=== PATIENT | female | born 1955 | race Caucasian/White ===

== ENCOUNTER → 2021-11-27 14:15 | Outpatient (BNVA) | payer MEDICARE, OTHER, SELFPAY | PROVIDERS: PCP Nurse Practitioner Family; Visit Provider Psychiatry & Neurology Neurology | DX: G35 Multiple sclerosis (principal); G25.0 Essential tremor | CPT/HCPCS: 99212 ==

== ENCOUNTER → 2022-05-21 13:02 | Outpatient (BNVA) | payer MEDICARE, OTHER, SELFPAY | PROVIDERS: PCP Physician Assistant Medical; Visit Provider Psychiatry & Neurology Neurology | DX: G25.0 Essential tremor (principal); G35 Multiple sclerosis; Z79.899 Other long term (current) drug therapy | CPT/HCPCS: 99212 ==